=== PATIENT | male | born 1985 | race African-American/Black ===

== ENCOUNTER 2023-11-15 08:55 | Emergency (ER) | payer SELFPAY ==
[2023-11-15] MEDS ORDERED: Sodium Chloride 0.9% 20 ML SDV IV PRN (09:01)
[2023-11-15] MEDS ORDERED: niCARdipine/Normal Saline 20 MG/200 ML BAG IV SCH (09:15)
[2023-11-15 09:31] LABS: BASOPHILS ABSOLUTE AUTO 0.05 K/uL (0.00-0.20); BASOPHILS PERCENT AUTO 0.5 % (0.0-1.0); EOSINOPHILS ABSOLUTE AUTO 0.04 K/uL (0.00-0.45); EOSINOPHILS PERCENT AUTO 0.4 % (0.0-6.0); HEMATOCRIT 44.4 % (42.0-52.0); HEMOGLOBIN 14.9 g/dL (14.0-18.0); IMMATURE GRAN ABSOLUTE AUTO 0.03 K/uL (0.00-0.05); IMMATURE GRAN PERCENT AUTO 0.3 % (0.0-0.4); LYMPHOCYTES ABSOLUTE AUTO 1.75 K/uL (1.00-4.80); LYMPHOCYTES PERCENT AUTO 17.8 % (24.0-44.0); MEAN CORPUSCULAR HEMOGLOBIN 26.4 pg (28.0-32.0); MEAN CORPUSCULAR HGB CONC 33.6 g/dL (32.0-36.0); MEAN CORPUSCULAR VOLUME 78.7 fL (83.0-99.0); MEAN PLATELET VOLUME 8.8 fL (9.4-12.4); MONOCYTES ABSOLUTE AUTO 0.87 K/uL (0.00-0.80); MONOCYTES PERCENT AUTO 8.9 % (0.0-8.0); NEUTROPHILS ABSOLUTE AUTO 7.09 K/uL (1.80-7.70); NEUTROPHILS PERCENT AUTO 72.1 % (41.0-71.0); PLATELET COUNT,PLT 369 K/uL (150-400); RED BLOOD CELL COUNT 5.64 M/uL (4.52-5.90); WHITE BLOOD CELL COUNT,WBC 9.83 K/uL (3.9-11.3)
[2023-11-15] MEDS: Sodium Chloride 0.9% 10 ML Syringe FLUSH PRN (09:33)
[2023-11-15] MEDS: Sodium Chloride 0.9% 2.5 ML Syringe FLUSH PRN (09:33)
[2023-11-15] MEDS: Ondansetron 4 MG/2 ML SDV IVPUSH ONE (09:33)
[2023-11-15 09:34] LABS: A/G RATIO 0.8 (0.9-1.6); ALBUMIN 3.3 g/dL (3.4-5.0); CALCIUM 9.2 mg/dL (8.5-10.1); CARBON DIOXIDE,CO2 22.9 mmol/L (21.0-32.0); CREATININE 1.6 mg/dL (0.8-1.3); EST CRCL DRUG DOSING (CG) 73.49 mL/min; POTASSIUM,K 4.4 mmol/L (3.5-5.1); PROTEIN TOTAL,TP 7.6 g/dL (6.4-8.2)
[2023-11-15 09:39] LABS: INR 1.27 (0.86-1.11); PTT,PARTIAL THROMBOPLSTIN TIME 24.6 SEC (23.9-30.7)
[2023-11-15 09:40] LABS: BICARBONATE,ARTERIAL 23 mEq/L (22-26); PCO2 ARTERIAL 41 mmHG (35-45); PO2 ARTERIAL 223 mmHG (80-105)
[2023-11-15] MEDS: Iopamidol 755 MG/ML 500 ML Multipack Bottle IVPUSH STA ×2 (09:50)
[2023-11-15] MEDS: Aspirin 325 MG Tab.EC PO ONE (11:57)
[2023-11-15] MEDS: Aspirin 300 MG Supp RECTAL ONE (12:06)
[2023-11-15 14:01] VITALS: BP 187/159; PULSE 105
[2023-11-15] MEDS ORDERED: fentaNYL/Normal Saline 2,500 MCG in Premix Bag 1 BAG IV PRN (15:28)
[2023-11-15] MEDS: fentaNYL 100 MCG/2 ML SDV IVPUSH ONE (15:38)
[2023-11-15] MEDS: fentaNYL 100 MCG/2 ML SDV ONE (15:55)
[2023-11-15] MEDS: fentaNYL/Normal Saline 0 ML ONE (15:55)
[2023-11-15] MEDS: Benzocaine 20% Topical Spray UD MUCMEM ONE (15:55)
[2023-11-15] MEDS: Succinylcholine 200 MG/10 ML MDV IV ONE (15:55)
[2023-11-15] MEDS: Etomidate 2 MG/ML 20 ML SDV IVPUSH ONE (15:57)
== END 2023-11-15 15:56 ==
LOC: MW.ED 08:55
DX: I63.9 Cerebral infarction, unspecified (principal); Z75.8 Other problems related to medical facilities and other health care
CPT/HCPCS: 31500; 36415; 36600; 43752; 51702; 70450; 70496; 70498; 80053; 80307; 82803; 84484; 85025; 85610; 85730; 93005; 96374; 96375; 99285; A9270; J2405; J3010; J3490; Q9967; 93010; J0330